=== PATIENT | female | born 1945 | race Caucasian/White ===

== ENCOUNTER → 2016-06-14 | Outpatient (CLI) | payer MEDICARE, OTHER ==
[~2016-06-14] MED LIST: ALPR-138 PO; ASPI1TAB69 PO; ATEN50TA PO; BUTO10SO NASAL; FLUO-1 PO; FLUT1SPR5 EACH NARE; LEVE250 PO; NAPR500T PO; PROZ40CA PO; TOPA100T11 PO; VITA400C2 PO; XANA1TAB2 PO
[2016-06-14 13:40] LABS: AUTOMATED NEUTROPHIL # 3.6 TH/MM3 (1.8-7.7); BASOPHIL % 0.7 % (0.0-2.0); EOSINOPHIL # 0.1 TH/MM3 (0-0.4); EOSINOPHIL % 2.2 % (0.0-4.0); HEMATOCRIT 38.4 % (35.0-46.0); HEMO FLAGS DIFF FINAL; LYMPHOCYTE # 1.9 TH/MM3 (1.0-4.8); MEAN CELL VOLUME 94.6 FL (80.0-100.0); MEAN CORPUSCULAR HEMOGLOBIN 31.7 PG (27.0-34.0); MEAN CORPUSCULAR HGB CONC 33.5 % (32.0-36.0); MONO % 8.9 % (0.0-8.0); NEUT % 58.2 % (16.0-70.0); PLATELET COUNT 192 TH/MM3 (150-450); RED BLOOD COUNT 4.06 MIL/MM3 (4.00-5.30); WHITE BLOOD COUNT 6.2 TH/MM3 (4.0-11.0)
[2016-06-14 13:49] LABS: BLOOD, URINE SMALL (NEG); COMMENT (UR) CULT NOT INDICATED; CULTURE IF INDICATED CULT NOT INDICATED; GLUCOSE,URINE NEG (NEG); KETONE, URINE NEG (NEG); MUCUS URINE FEW /lpf (OCC); NITRITE,URINE NEG (NEG); PH, URINE 5.5 (5.0-8.5); URINE COLOR YELLOW (YELLW/STRAW)
== END ==
LOC: CPRE 12:35
PROVIDERS: ATTEND Obstetrics & Gynecology
DX: Z01.812 Encounter for preprocedural laboratory examination (principal); D39.10 Neoplasm of uncertain behavior of unspecified ovary
CPT/HCPCS: 36415; 81001; 85025

== ENCOUNTER 2016-06-21 10:28 | Observation (INO) | payer MEDICARE, OTHER ==
--- NOTE | 2016-06-20 21:47 | MH ---
cc: ERIN VALERA M.D. DATE OF ADMISSION 06/21/2016 DATE OF 1945 ADMISSION DIAGNOSIS Left adnexal mass with pelvic pain. HISTORY OF PRESENT ILLNESS The patient is a 70-year-old single, white female para 1-0-0-1 who developed hematuria in January of 2016. Her Pap smear 02/22/2016 was normal. Her pelvic ultrasound 03/05/2016 was normal. She was referred for urological evaluation. A CT scan obtained on 05/12/2016 showed normal kidneys with some small nonobstructing stones and the presence of a new left ovarian mass 2.7 cm. Ultrasound was obtained on 05/24/2016 confirmed a cystic left adnexal mass. Her CA-125 on 06/04/2016 was normal. Due to the new presence of the mass, discomfort she is now admitted for laparoscopy, possible BSO, possible LASH BSO, possible GLO-BSO. PAST MEDICAL HISTORY 1. Previous surgery tonsillectomy and adenoidectomy in childhood. 2. Had multiple surgeries for rectal fistula in 1988 and 1989. Approximately 10 procedures. Spontaneous recurrence. MEDICATIONS 1. Topamax. 2. Atenolol. 3. Prozac. ALLERGIES PENICILLIN, CONTRAST DYE. IODINE. TRANSFUSIONS None. OBSTETRICAL HISTORY One vaginal delivery . SOCIAL HISTORY Retired, . Alcohol none. Tobacco quit. Drugs none. FAMILY HISTORY Noncontributory. PHYSICAL EXAMINATION GENERAL: Well-nourished, well-developed white female. VITAL SIGNS: Stable. HEENT: Examination is normal. CHEST: Clear. HEART: Regular rate. BREASTS: Symmetrical. ABDOMEN: Benign. PELVIC: Normal external genitalia and Bartholin's, urethral, [place]'s. Vagina is normal. Cervix is normal. Uterus is normal size, shape. adnexal nonpalpable. ASSESSMENT As above. PLAN She is now admitted for laparoscopy, probable bilateral salpingo-oophorectomy, possible LASH procedure, possible GLO BSO. While in the office I explained the procedure, the risks and benefits, complications, possible need for additional treatment . The patient would like to proceed. MD ZAIDA Mckeon/JAYLEEN /9:15 PM 9:36 PM MTDBright
[~2016-06-21] VITALS: Ht 162.6 cm; Wt 79.4 kg
[~2016-06-21 10:28] MED LIST changes: -ALPR-138 PO; +BUPIVACAINE LIPOSOME PF 1.3% 20 ML VIAL ONE; -BUTO10SO NASAL; +DEXAMETHASONE SOD PHOS PF 10 MG/ML VIAL IV ONE; -FLUO-1 PO; -LEVE250 PO
[2016-06-21] MEDS ORDERED: LACTATED RINGER'S 1000 ML IV SCH (11:00)
[2016-06-21] MEDS ORDERED: METOPROLOL TARTRATE 25 MG TAB PO PRN (11:00)
[2016-06-21] MEDS ORDERED: SODIUM CHLORID 0.9% 500 ML IV SCH (11:00)
[2016-06-21] MEDS ORDERED: INSULIN HUMAN REGULAR 1,000 UNITS/10 ML VIAL SQ PRN (11:00)
[2016-06-21] MEDS ORDERED: ACETAMINOPHEN 1000 MG/100 ML VIAL IV SCH (11:15)
[2016-06-21] MEDS ORDERED: CLINDAMYCIN 600 MG/NS 100 ML IV SCH ×2 (11:15)
[2016-06-21] MEDS ORDERED: BUTO10SO NASAL (11:26)
[2016-06-21 11:32] VITALS: BP 120/65; PULSE 59; RESP 16; TEMP 98.4; O2SAT 99
[2016-06-21] MEDS ORDERED: MIDAZOLAM HCL 5 MG/5 ML VIAL ONE (11:53)
[2016-06-21] MEDS ORDERED: PROPOFOL 200 MG/20 ML AMP IV ONE (12:00)
[2016-06-21] MEDS ORDERED: ONDANSETRON HCL 4 MG/2 ML VIAL IV PUSH ONE (12:00)
[2016-06-21] MEDS ORDERED: NEOSTIGMINE 3 MG/3 ML SYR IV ONE (12:00)
[2016-06-21] MEDS ORDERED: ePHEDrine/NS 25 MG/5 ML SYR IV ONE (12:00)
[2016-06-21] MEDS ORDERED: D5-1/2 NS + KCL 20 MEQ INJ 1,000 ML IV SCH (14:12)
[2016-06-21] MEDS ORDERED: HYDROmorphone HCL PF 1 MG/ML VIAL IV PRN (14:15)
[2016-06-21] MEDS ORDERED: ZOLPIDEM TARTRATE 5 MG TAB PO PRN (14:15)
[2016-06-21] MEDS ORDERED: diphenhydrAMINE HCL 25 MG CAP PO PRN (14:15)
[2016-06-21] MEDS ORDERED: hydrOXYzine PAMOATE 25 MG CAP PO PRN (14:15)
[2016-06-21] MEDS ORDERED: ONDANSETRON HCL 4 MG/2 ML VIAL IV PRN (14:15)
[2016-06-21] MEDS ORDERED: ONDANSETRON ODT 4 MG TAB PO PRN (14:15)
[2016-06-21] MEDS ORDERED: SODIUM CHLORIDE 0.9% FLUSH 5 ML FLUSH FLUSH PRN (14:15)
[2016-06-21] MEDS ORDERED: PROMETHAZINE HCL 25 MG TAB PO PRN (14:15)
[2016-06-21] MEDS ORDERED: DO NOT ADM ANY ANTICOAGULANT DRUGS XX PRN (14:34)
[2016-06-21] MEDS ORDERED: fentaNYL CITRATE 250 MCG/5 ML AMP ONE (14:39)
[2016-06-21] MEDS ORDERED: D5-1/2 NS + KCL 20 MEQ INJ 1,000 ML ONE (14:48)
[2016-06-21] MEDS ORDERED: *morphine SULFATE 8 MG/ML PERIprocedure ONLY ONE ×2 (14:55→15:36)
[2016-06-21] MEDS: KETOROLAC TROMETHAMINE 30 MG/ML (IVP) VIAL IVP SCH ×2 (15:00→20:37)
[2016-06-21 16:50] VITALS: BP 107/67; PULSE 65; RESP 16; TEMP 98; O2SAT 96
[2016-06-21 19:45] VITALS: BP 102/62; PULSE 64; RESP 20; TEMP 98.4; O2SAT 98
[2016-06-21] MEDS: ACETAMINOPHEN 1000 MG/100 ML VIAL IV SCH (19:48)
[2016-06-21 20:14] LABS: HEMATOCRIT 35.8 % (35.0-46.0); REVIEW FLAG FINAL
[2016-06-21] MEDS ORDERED: DOCUSATE SODIUM 100 MG CAP PO SCH (21:00)
[2016-06-21] MEDS ORDERED: SODIUM CHLORIDE 0.9% FLUSH 5 ML FLUSH FLUSH SCH (21:00)
[2016-06-22 00:45] VITALS: BP 114/59; PULSE 72; RESP 20; TEMP 99.2
[2016-06-22] MEDS: KETOROLAC TROMETHAMINE 30 MG/ML (IVP) VIAL IVP SCH (03:00)
[2016-06-22] MEDS: ACETAMINOPHEN 1000 MG/100 ML VIAL IV SCH (03:20)
[2016-06-22 04:00] VITALS: BP 123/69; PULSE 69; RESP 18; TEMP 98
[2016-06-22 06:04] LABS: AUTOMATED NEUTROPHIL # 7.2 TH/MM3 (1.8-7.7); BASOPHIL % 0.4 % (0.0-2.0); HEMO FLAGS DIFF FINAL; LYMPH % 12.5 % (9.0-44.0); LYMPHOCYTE # 1.1 TH/MM3 (1.0-4.8); MEAN CELL VOLUME 96.1 FL (80.0-100.0); MEAN CORPUSCULAR HEMOGLOBIN 31.8 PG (27.0-34.0); MEAN CORPUSCULAR HGB CONC 33.1 % (32.0-36.0); MONO % 6.9 % (0.0-8.0); NEUT % 80.2 % (16.0-70.0); PLATELET COUNT 138 TH/MM3 (150-450); RED BLOOD COUNT 3.33 MIL/MM3 (4.00-5.30); RED CELL DISTRIBUTION WIDTH 14.1 % (11.6-17.2)
[2016-06-22 06:25] LABS: BICARBONATE 21.3 MEQ/L (21.0-32.0); POTASSIUM 3.8 MEQ/L (3.5-5.1)
--- NOTE | 2016-06-22 08:17 | HHI.DCPOC ---
Discharge Care Plan Report Symptoms to Your Doctor -Temperate above 100.5 degrees -Redness, of incision or excessive or foul smelling drainage -Unusual pain or calf pain -Increased vaginal bleeding -Painful or difficulty urinating -Feelings of extreme sadness or anxiety after 2 weeks Goals to Promote Your Health * To prevent worsening of your condition and complications * To maintain your health at the optimal level Directions to Meet Your Goals Take your medications as prescribed Follow your dietary instruction Follow activity as directed Ensure plenty of rest for recovery Drink fluids for hydration Keep your appointments as scheduled Take your immunizations and boosters as scheduled If your symptoms worsen call your PCP, if no PCP go to Urgent Care Center or Emergency Room Smoking is Dangerous to Your Health. Avoid second hand smoke Call the 24-hour crisis hotline for domestic abuse at Kody Alaniz MD Jun 22, 2016 08:17
[2016-06-22 08:20] VITALS: BP 121/61; PULSE 68; RESP 16
--- NOTE | 2016-06-24 17:55 | MP ---
cc: MORAIMAERIN DATE OF SURGERY: 06/21/2016. PREOPERATIVE DIAGNOSIS: Left adnexal mass. POSTOPERATIVE DIAGNOSIS: Left adnexal mass. OPERATIVE PROCEDURE PERFORMED: 1. Laparoscopy. 2. Laparoscopic supracervical hysterectomy and bilateral salpingo-oophorectomy. SURGEON: Erin Alaniz MD. SEAT SCOOPER MACHINE: Danielle Martinez MD. ANESTHESIA: General endotracheal. ESTIMATED BLOOD LOSS FOR THE PROCEDURE: About 50 cc. FLUIDS: One liter of crystalloid. DESCRIPTION OF THE PROCEDURE IN DETAIL / OBJECTIVE FINDINGS: Following the induction of adequate general endotracheal anesthesia, the patient was prepped and draped supine on the operating table in the dorsal lithotomy position in the usual sterile fashion with the bladder being drained by Doe catheterization. The abdomen was opened through a 3-cm curving infraumbilical incision using the knife to cut down through the skin to fascia. The fascia was opened transversely and stripped from the muscles. The rectus muscle was split in the midline and the peritoneum opened sharply without incident. Palpation was normal and a GelPort was placed. The laparoscope was inserted. A 5 port was placed in the left lower quadrant and airseal port in the right lower quadrant. The pelvic contents revealed normal uterus and right tube and ovary. The left tube was normal. The left ovary was enlarged to about 4 cm and multicystic. The cul-de-sacs were clear. The liver edge was normal. The appendix was normal. Peritoneal washings were collected. The harmonic scalpel was used to take the left tube and ovary and it was sent for frozen section. The harmonic scalpel was now used to take the right ovarian pedicle, right round ligament, right broad ligament, right sided bladder flap and right uterine vessels. On the left side, the harmonic was used to take the left round ligament, left broad ligament, left-sided bladder flap, and left uterine vessels. Frozen section returned benign. The harmonic scalpel was used to amputate the fundus and cervix. A pouch was inserted and used to extract the uterus and leave the right tube and ovary intact. Irrigation was now performed. No bleeding was evident. Low pressures were done. The operative sites were coated with the anticoagulant coated with a thrombin solution. Ureters were inspected. Good peristalsis. No bleeding was evident. The scope was removed. GelPort removed. Peritoneum sutured with running stitch of 2-0 Vicryl, the fascia with a running locking stitch #0 Vicryl corner to midline and tied, subcu with running 3-0 Vicryl and skin with a running subcuticular 3-0 Monocryl. The scope was now reinserted and used to inspect the GelPort site which was well closed. No entrapment. Pelvis was inspected and there was no bleeding. The scope was removed, gas was allowed to escape and small ports closed with 3-0 Monocryl. Dermabond applied. All counts were correct and the patient was awake and taken to the recovery room in good position. MD ZAIDA Mckeon/NISHI /2:45 PM /5:37 PM MTDD
== END 2016-06-22 09:35 | disposition home or self-care (01) ==
LOC: HSDC 10:28 → H1EA 16:57
PROVIDERS: ADMIT Obstetrics & Gynecology; ATTEND Obstetrics & Gynecology
DX: D25.9 Leiomyoma of uterus, unspecified (principal); D27.1 Benign neoplasm of left ovary; N83.8 Other noninflammatory disorders of ovary, fallopian tube and broad ligament; Z88.0 Allergy status to penicillin; Z87.891 Personal history of nicotine dependence; Z91.041 Radiographic dye allergy status
CPT/HCPCS: 00840; 58542; 64450; 80048; 85014; 85018; 85025; 86850; 86900; 86901; 88112; 88305; 88307; 88331; C9290; G0378; J0131; J1100; J1885; J2250; J2270; J2405; J2710; J3010; J3480; J7120